=== PATIENT | female | born 1970 | race Caucasian/White ===

== ENCOUNTER 2023-04-11 17:46 | Emergency (ER) | payer BC, SELFPAY ==
[2023-04-11 17:49] VITALS: BP 110/85; PULSE 53; RESP 20; TEMP 36.2; O2SAT 100; BMI 23.5
--- NOTE | 2023-04-11 18:11 | CT_ITS ---
STUDY: CT ABDOMEN AND PELVIS WITHOUT CONTRAST REASON FOR EXAM: Female, 52 years old. R flank pain RADIATION DOSAGE (If Supplied By Facility): CTDIvol = ( 6.58 ) mGy, DLP = ( 320.57 ) mGycm TECHNIQUE: Transaxial images were obtained from the dome of the diaphragm to the symphysis pubis without oral contrast, and without intravenous contrast. Sagittal and coronal images were reconstructed. Individualized dose optimization techniques were used for this CT. COMPARISON: None. FINDINGS: The visualized lung bases are unremarkable. The visualized portions of the heart are within normal limits. Indeterminate low-attenuation lesion within the left liver lobe measuring 6 mm, likely benign such as cyst in the absence of known neoplasm. Otherwise normal liver. Normal gallbladder and extrahepatic biliary system. Normal spleen. Normal pancreas. Normal bilateral adrenal glands. Mild to moderate right hydronephrosis. Right lower renal pole stone measuring 3.7 mm. Otherwise normal right kidney. Mild to moderate right-sided hydroureter due to a stone measuring 4.6 mm at the right UV junction. Otherwise normal right kidney. Normal left kidney. Normal visualized stomach. Normal small intestine. Normal colon. The appendix is visualized and appears normal. Normal abdominal aorta. Normal inferior vena cava. Normal retroperitoneum. Normal urinary bladder. Normal abdominal wall. Normal osseous structures. CT/Abdomen/Pelvis without Cont IMPRESSION: Mild to moderate right-sided hydronephrosis due to a distal stone measuring 4.6 mm at the right UV junction. No acute appendicitis or bowel obstruction. Electronically Signed: Diana Fields MD at 19:22 EDT ,
--- NOTE | 2023-04-11 18:17 | EDS_ITS ---
<Statement entered by Michelle Beach MD - 04/11/23 22:42> I have personally performed a face to face assessment of the patient and have reviewed the LIGIA Note. Patient presents secondary to right flank pain. Patient reports onset of symptoms today with urinary urgency. Patient lying in bed, appears uncomfortable but in no acute distress. Head and neck examination unremarkable. Heart is regular rate and rhythm. Lung sounds are clear. Abdomen is soft with minimal right-sided tenderness. No guarding or rebound. No palpable masses. CBC and chemistry studies unremarkable. Urinalysis reveals no evidence of acute infection. CT flank reveals a kidney stone at the UVJ on the right. Patient be treated with analgesics and antiemetics. Referred to urology for follow-up as needed. Return instructions given. HPI History of Present Illness Chief Complaint: Complaint Narrative Narrative: Patient presenting today with right-sided cramping intermittent flank pain that radiates to the right side of her abdomen as well as increased urinary urgency that she has had since this afternoon. She reports she does have a history of a kidney stone. She denies any fever, chills, dysuria, hematuria, nausea, vomiting. She denies a PMH of any chronic health conditions. PFSH PFSH Medical History Miscarriage Medical History no medical history Home Medications ondansetron 4 mg disintegrating tablet 4 mg PO Q8H PRN PRN Nausea 2 days #10 tabs 04/11/23 [Rx Last Taken Unknown] oxycodone-acetaminophen 5 mg-325 mg tablet (Endocet) 1 tab PO Q6H PRN pain 3 days #10 tabs 04/11/23 [Rx Last Taken Unknown] tamsulosin 0.4 mg capsule (Flomax) 0.4 mg PO DAILY 5 days #5 caps 04/11/23 [Rx Last Taken Unknown] Allergy/AdvReac Type Severity Reaction Status Date / Time No Known Allergies Allergy Verified 04/11/23 17:49 Social History Smoking Status: Former smoker ROS ROS ED Constitutional Constitutional ED: Denies chills or fever(s) Cardiovascular Cardiovascular: Denies chest pain Respiratory/Chest Respiratory/Chest: Denies cough or dyspnea Gastrointestinal Gastrointestinal: Denies abdominal pain, nausea or vomiting Genitourinary Genitourinary ED: Reports LMP (females 10-50) Details: Comment: (Patient is postmenopausal.) and urinary urgency; Denies dysuria or hematuria Musculoskeletal Musculoskeletal: Reports back pain Integumentary Denies rash Neurologic Neurologic: Denies weakness EXAM Physical Exam Const Vital Signs: 04/11/23 17:49 04/11/23 20:45 04/11/23 20:48 Temperature 97.1 F L Temperature Source Temporal Pulse Rate 53 L 78 78 Respiratory Rate 20 H 16 16 Blood Pressure 110/85 H 110/54 L 110/54 L Blood Pressure Mean 93 72 Pulse Ox 100 98 98 Oxygen Delivery Method Room Air Nasal Cannula Positive well nourished, well developed and no apparent distress General Appearance ED: well developed HEENT Reports normocephalic and head/scalp atraumatic Mouth ED: Yes moist mucous membranes normal Eyes PERRL and EOMs intact bilaterally Neck full ROM and supple Chest Wall inspection of chest normal Resp normal respiratory effort and clear to auscultation bilaterally Cardio regular rate and regular rhythm GI soft to palpation, non-tender, non-distended and no masses Back/Spine normal ROM and normal to inspection General Back: CVA tenderness right Extremity normal to inspection and full ROM Neuro oriented x3, CN's II-XII intact bilaterally, moves all extremities, no focal motor deficits and no sensory deficits noted Sensorium / Orientation: awake and alert Psych mental status grossly normal and thought process normal Skin no rashes or lesions noted and no wounds MDM MDM MDM Narrative Medical decision making narrative: Patient presenting today with right-sided flank pain and increased urinary urgency that she has had since this afternoon. She does report a history of kidney stones. She does have right-sided CVA tenderness. Kidney stone work-up will be pursued, labs will be obtained to rule out leukocytosis, anemia, electrode abnormality, JOSE, and UTI. CT of the abdomen and pelvis will be obtained to rule out kidney stone, pyelonephritis, appendicitis, and other acute pathology. She will be given IV fluids and Toradol. Patient have a 4.6 mm kidney stone on the right side. I did offer her additional pain control but she reported she did not want anything stronger than Toradol. She will be discharged with a prescription for Percocet, Flomax, Zofran. Prior to being discharged patient began vomiting and had increased right-sided flank pain. She will be given Zofran and morphine and reassessed. Lab Data Attestation: I reviewed the patient's lab results. Labs: Laboratory Results - last 24 hr 04/11/23 18:25 WBC 6.2 RBC 4.17 L Hgb 12.9 Hct 39.8 MCV 95.4 MCH 30.9 MCHC 32.4 RDW Std Deviation 42.5 RDW Coeff of Betsey 12.2 Plt Count 266 MPV 9.8 Immature Gran % (Auto) 0.200 Neut % (Auto) 49.1 Lymph % (Auto) 37.6 Stephenson % (Auto) 9.6 Eos % (Auto) 2.7 Baso % (Auto) 0.8 Absolute Neuts (auto) 3.1 Absolute Lymphs (auto) 2.34 Nucleated RBC % 0 Sodium 141 Potassium 4.2 Chloride 108 H Carbon Dioxide 29.0 Anion Gap 4 L BUN 19 H Creatinine 0.90 Estim Creat Clear Calc 64.58 Est GFR (MDRD) Af Amer 85 Est GFR (MDRD) Non-Af 70 BUN/Creatinine Ratio 21.1 H Glucose 123 H Calcium 9.0 Urine Color Yellow Urine Clarity Cloudy Urine pH 8.0 Ur Specific [place] 1.015 Urine Protein Negative Urine Glucose (UA) Normal Urine Ketones Negative Urine Occult Blood 10 H Urine Nitrite Negative Urine Bilirubin Negative Urine Urobilinogen Normal Ur Leukocyte Esterase 100 H Urine RBC 0 SEEN Urine WBC 0-5 SEEN Ur Squamous Epith Cells 0 SEEN Amorphous Sediment 1+ Urine Bacteria 0 SEEN Urine Mucus 0 SEEN Radiography Diagnostic Testing: Clinical Impression(s) from Imaging Studies Abdomen/Pelvis CT 04/11/23 18:11 IMPRESSION: Mild to moderate right-sided hydronephrosis due to a distal stone measuring 4.6 mm at the right UV junction. No acute appendicitis or bowel obstruction. Electronically Signed: Diana Fields MD at 19:22 EDT , Discharge Plan Triage Chief Complaint: Complaint ED Midlevel Provider: Smitha Razo ED Provider: Michelle Beach Dx/Rx/DC Orders Clinical Impression: Kidney stone on right side Instructions: ED Kidney Stone w/ Colic Prescriptions: New oxycodone-acetaminophen [Endocet] 5-325 mg tablet 1 tab PO Q6H PRN (Reason: pain) 3 Days Qty: 10 0RF tamsulosin [Flomax] 0.4 mg capsule 0.4 mg PO DAILY 5 Days Qty: 5 0RF ondansetron 4 mg tablet,disintegrating 4 mg PO Q8H PRN PRN (Reason: Nausea) 2 Days Qty: 10 0RF Referrals: Erica Parish MD [Med Staff - Active Staff] - As Needed Activity Restrictions/Additional Instructions: Please return for any worsening of your symptoms. Drink plenty of fluids. Follow-up with urology as needed. Disposition Disposition: Home, Self Care Discharge Date/Time: 04/11/23 20:50
[2023-04-11] MEDS: Ketorolac 15 MG/ML Vial IV (18:24)
[2023-04-11 18:35] LABS: Bacteria 0 SEEN /hpf (None Seen); Mucous, Urine 0 SEEN /hpf (<or=2+); Red Blood Cells-Urine 0 SEEN /hpf (0-5); Squamous Epithelial Cells - UA 0 SEEN /hpf (5-10)
[2023-04-11 18:39] LABS: Color, Urine Yellow (Yellow); Glucose, Dipstick Normal (Normal); Ketone-Dipstick Negative (Negative); Leukocyte Esterase-Dipstick 100 /ul (Negative); Nitrite-Dipstick Negative (Negative); Occult Blood-Urine 10 /ul (Negative); Protein-Dipstick Negative (Negative); Specific Gravity, Urine 1.015 (1.002-1.030); Urine Bilirubin Dipstick Negative (Negative); Urine Clarity Cloudy (Clear); Urine Urobilinogen Normal (Normal)
[2023-04-11 18:41] LABS: Absolute Lymphocyte Count 2.34 X10^3/uL (0.83-4.51); Absolute Neutrophil Count 3.1 X10^3/uL (2.0-7.7); Basophil# 0.05 X10^3/uL; Basophil% 0.8 % (0-1); Eosinophil# 0.17 X10^3/uL; Eosinophils% 2.7 % (0-5); Hematocrit 39.8 % (37-47); Hemoglobin 12.9 g/dL (12.0-15.0); Lymphocyte # 2.34 X10^3/ul (0.83-4.51); Lymphocyte % 37.6 % (19-41); Mean Corp Hgb Conc 32.4 g/dL (32-36); Mean Corpuscular Hgb 30.9 pg (27.0-32.0); Mean Corpuscular Volume 95.4 fL (81-99); Mean Platelet Vol. 9.8 fl (6.2-12.0); Monocyte% 9.6 % (0-10); NRBC Flagged by Analyzer 0 % (0-5); Neutrophil # 3.05 X10^3/uL (2.7-7.7); Neutrophil % 49.1 % (47-70); Platelet Count 266 K/mm3 (150-450); RBC Distribution Width CV 12.2 % (11.6-14.6); RBC Distribution Width SD 42.5 fl (35.1-43.9); Red Blood Count 4.17 M/mm3 (4.2-5.4); White Blood Count 6.2 K/mm3 (4.4-11.0)
[2023-04-11 18:47] LABS: Amorphous Sediment 1+; White Blood Cells 0-5 SEEN /hpf (0-5)
[2023-04-11 19:09] LABS: Anion Gap 4 (5-15); BUN 19 mg/dL (7-18); BUN/Creat Ratio 21.1 RATIO (10-20); Chloride 108 mmol/L (98-107); EST Glomerular Filtration Rate 70 mL/min (>60); Est Glom Filt Rate - Afr Amer 85 mL/min (>60); Estimated Creatinine Clearance 64.58 ml/min; Glucose 123 mg/dL (74-106); Potassium 4.2 mmol/L (3.5-5.1); Sodium Level 141 mmol/L (136-145)
[2023-04-11] MEDS: Ondansetron ODT 4 MG Tablet PO (20:36)
[2023-04-11] MEDS: Morphine 4 MG/ML Syringe IM (20:37)
[2023-04-11] MEDS: Ketorolac 15 MG/ML Vial IM (20:40)
[2023-04-11 20:45] VITALS: BP 110/54; PULSE 78; RESP 16; O2SAT 98
[2023-04-11 20:48] VITALS: BP 110/54; PULSE 78; RESP 16; O2SAT 98
== END 2023-04-11 20:50 | disposition home or self-care (01) ==
PROVIDERS: Physician Assistant; Emergency Provider Emergency Medicine; Visit Provider Emergency Medicine
DX: N13.2 Hydronephrosis with renal and ureteral calculous obstruction (principal); Z87.891 Personal history of nicotine dependence
CPT/HCPCS: 74176; 80048; 81001; 85025; 96361; 96372; 96374; 99284; A4216